=== PATIENT | female | born 2005 | race Caucasian/White ===

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

== ENCOUNTER 2024-02-21 17:18 | Emergency (ER) | payer OTHER, MEDICAID ==
[~2024-02-21 17:18] MED LIST changes: -NAPR-56 PO; +ONDA-243 PO; -ONDA4TAB12 PO
== END 2024-02-21 18:01 | disposition left against medical advice (07) ==
LOC: ER 17:19
DX: H57.10 Ocular pain, unspecified eye (principal); Z53.21 Procedure and treatment not carried out due to patient leaving prior to being seen by health care provider

== ENCOUNTER 2024-03-03 15:24 | Emergency (ER) | payer OTHER, MEDICAID ==
[~2024-03-03] VITALS: Ht 177.8 cm; Wt 116.8 kg
[2024-03-03] MEDS: normal saline 1000ml 1,000 ML IV ONE (15:48)
[2024-03-03] MEDS: diphenhydrAMINE 50 mg/ml inj IV ONE (15:49)
[2024-03-03] MEDS: metoclopramide 5 mg/ml inj IV ONE (15:49)
[2024-03-03] MEDS: dicyclomine 10 MG capsule PO ONE (15:49)
[2024-03-03 17:08] LABS: BILIRUBIN,URINE NEGATIVE (Neg); CLARITY,URINE CLEAR (Clear); COLOR,URINE STRAW (Yellow); GLUCOSE, URINE NEGATIVE (Neg); KETONES,URINE NEGATIVE (Neg); LEUKOCYTE ESTERASE ,URINE NEGATIVE (Neg); NITRITES, URINE NEGATIVE (Neg); OCCULT BLOOD,URINE NEGATIVE (Neg); PH,URINE 6.5 (4.8-8.0); PROTEIN,URINE NEGATIVE (Neg); UA COLLECTION TYPE CLN CATCH MIDSTREAM; UROBILINOGEN,URINE 0.2 E.U/dL (0.2-1.0)
[2024-03-03 17:09] LABS: URINE HCG NEGATIVE (NEG)
[2024-03-03 17:14] LABS: BASOPHILS # (AUTO) 0.1 X10'3 (0-0.2); HEMATOCRIT 39.7 % (35.0-45.0); HEMOGLOBIN 13.2 g/dl (12.0-16.0); LYMPHOCYTES # (AUTO) 1.9 X10'3 (1.1-4.8); MEAN PLATELET VOLUME 11.2 FL (7.4-10.4); MONOCYTES # (AUTO) 0.6 X10'3 (0-0.9); RED CELL DISTRIBUTION WIDTH 13.7 % (11.5-14.5); WHITE BLOOD COUNT 6.8 X10'3 (4.5-11.0)
[2024-03-03 17:15] LABS: URINE AMPHETAMINE SCREEN NEGATIVE (Neg); URINE BARBITUATE SCREEN NEGATIVE (Neg); URINE BENZODIAZEPINES SCREEN NEGATIVE (Neg); URINE CANNABINOID SCREEN NEGATIVE (Neg); URINE COCAINE SCREEN NEGATIVE (Neg); URINE METHADONE SCREEN NEGATIVE (Neg); URINE OPIATE SCREEN NEGATIVE (Neg); URINE PHENCYCLIDINE SCREEN NEGATIVE (Neg)
[2024-03-03 17:16] LABS: BASOPHILS % (AUTO) 1.5 % (0-1); EOSINOPHILS % (AUTO) 0.7 % (0-6); HCG SERUM QL NEGATIVE; LYMPHOCYTES % (AUTO) 28.3 % (21-51); MEAN CORPUSCULAR HEMOGLOBIN 30.1 PG (27.0-31.0); MEAN CORPUSCULAR HGB CONC 33.2 g/dL (33.0-36.5); MEAN CORPUSCULAR VOLUME 90.6 FL (78-98); MONOCYTES % (AUTO) 8.6 % (2-12); NEUTROPHILS # (AUTO) 4.1 X10'3 (1.8-7.7); NEUTROPHILS % (AUTO) 60.9 % (42-75); PLATELET COUNT 318 X10'3 (140-440); RED BLOOD COUNT 4.38 X10'6 (4.20-5.60)
[2024-03-03 17:23] LABS: ALANINE AMINOTRANSFERASE 29 U/L (12-78); ALBUMIN/GLOBULIN RATIO 1.1 (1.1-1.5); ALKALINE PHOSPHATASE 88 IU/L (20-180); ANION GAP 11 (8-16); ASPARTATE AMINO TRANSFERASE 19 U/L (10-37); BILIRUBIN,TOTAL 0.7 MG/DL (0.1-1.0); BLOOD UREA NITROGEN 7 MG/DL (7-18); BUN/CREATININE RATIO 8.9 (10.0-20.0); CALCIUM 9.1 MG/DL (8.5-10.1); CHLORIDE 106 MMOL/L (99-107); CREATININE 0.79 MG/DL (0.40-0.90); GLUCOSE 89 MG/DL (70-104); LIPASE 23 U/L (16-77); POTASSIUM 3.6 MMOL/L (3.5-5.1); SODIUM 143 MMOL/L (135-145); TOTAL CARBON DIOXIDE 25.9 MMOL/L (24-32); TOTAL PROTEIN 7.7 G/DL (6.4-8.2); eCRCL 124 ML/MIN; eGFR > 90 ML/MIN
[2024-03-03] MEDS ORDERED: ONDA-243 PO (18:33)
[2024-03-03] MEDS ORDERED: DICY10CA88 PO (18:33)
[2024-03-03 18:47] VITALS: BP 147/73; PULSE 95; RESP 18; TEMP 98.3; O2SAT 99
== END 2024-03-03 18:40 | disposition home or self-care (01) ==
LOC: ER 15:24
DX: K29.00 Acute gastritis without bleeding (principal); R11.2 Nausea with vomiting, unspecified; Z88.1 Allergy status to other antibiotic agents; Z79.899 Other long term (current) drug therapy; F41.9 Anxiety disorder, unspecified; F32.A Depression, unspecified
CPT/HCPCS: 36415; 74176; 76700; 80053; 80305; 81003; 81025; 83690; 84703; 85025; 96361; 96374; 96375; 99285; J1200; J2765; J7030

== ENCOUNTER 2024-03-09 08:06 | Emergency (ER) | payer OTHER, MEDICAID ==
[~2024-03-09] VITALS: Ht 180.3 cm; Wt 109.1 kg
[~2024-03-09 08:06] MED LIST changes: +DICY10CA88 PO
[2024-03-09 08:08] VITALS: BP 145/86; PULSE 124; RESP 18; TEMP 100; O2SAT 98
== END 2024-03-09 08:55 | disposition left against medical advice (07) ==
LOC: ER 08:07
DX: J11.1 Influenza due to unidentified influenza virus with other respiratory manifestations (principal); Z88.1 Allergy status to other antibiotic agents; Z53.21 Procedure and treatment not carried out due to patient leaving prior to being seen by health care provider

== ENCOUNTER → 2024-12-11 | Emergency (ER) | payer MEDICAID, OTHER ==
[~2024-12-11] VITALS: Ht 180.3 cm; Wt 127.3 kg
[~2024-12-11] MED LIST changes: +ARIP5TAB49 PO; -DICY10CA88 PO; +HYDR-3686 PO
[2024-12-11 14:58] VITALS: BP 149/86; PULSE 99; TEMP 98.1; O2SAT 98
[2024-12-11 15:35] VITALS: RESP 18
[2024-12-11 15:45] LABS: BASOPHILS # (AUTO) 0.1 X10'3 (0-0.2); EOSINOPHILS # (AUTO) 0.1 X10'3 (0-0.9); HEMOGLOBIN 13.9 g/dl (12.0-16.0); MONOCYTES # (AUTO) 0.6 X10'3 (0-0.9); RED CELL DISTRIBUTION WIDTH 14.6 % (11.5-14.5); WHITE BLOOD COUNT 7.3 X10'3 (4.5-11.0)
[2024-12-11 15:46] LABS: BASOPHILS % (AUTO) 1.4 % (0-1); EOSINOPHILS % (AUTO) 1.4 % (0-6); HEMATOCRIT 42.5 % (35.0-45.0); LYMPHOCYTES # (AUTO) 2.4 X10'3 (1.1-4.8); MEAN CORPUSCULAR HEMOGLOBIN 29.4 PG (27.0-31.0); MEAN CORPUSCULAR HGB CONC 32.8 g/dL (33.0-36.5); MEAN CORPUSCULAR VOLUME 89.5 FL (78-98); MEAN PLATELET VOLUME 11.9 FL (7.4-10.4); MONOCYTES % (AUTO) 7.8 % (2-12); NEUTROPHILS # (AUTO) 4.1 X10'3 (1.8-7.7); NEUTROPHILS % (AUTO) 56.4 % (42-75); PLATELET COUNT 338 X10'3 (140-440); RED BLOOD COUNT 4.75 X10'6 (4.20-5.60)
[2024-12-11 15:53] LABS: BILIRUBIN,URINE SMALL (Neg); CLARITY,URINE SLIGHTLY CLOUDY (Clear); COLOR,URINE YELLOW (Yellow); GLUCOSE, URINE NEGATIVE (Neg); KETONES,URINE TRACE mg/dl (Neg); LEUKOCYTE ESTERASE ,URINE NEGATIVE (Neg); NITRITES, URINE NEGATIVE (Neg); OCCULT BLOOD,URINE NEGATIVE (Neg); PROTEIN,URINE TRACE mg/dl (Neg); URINE HCG NEGATIVE (NEG); UROBILINOGEN,URINE 0.2 E.U/dL (0.2-1.0)
[2024-12-11 15:59] LABS: UA COLLECTION TYPE CLN CATCH MIDSTREAM
[2024-12-11 15:59] LABS: ALANINE AMINOTRANSFERASE 44 U/L (12-78); ALBUMIN 4.2 G/DL (3.4-5.0); ALBUMIN/GLOBULIN RATIO 1.1 (1.1-1.5); ALKALINE PHOSPHATASE 102 IU/L (20-180); ANION GAP 8 (8-16); ASPARTATE AMINO TRANSFERASE 23 U/L (10-37); BILIRUBIN,TOTAL 0.6 MG/DL (0.1-1.0); BLOOD UREA NITROGEN 7 MG/DL (7-18); CALCIUM 9.1 MG/DL (8.5-10.1); CHLORIDE 106 MMOL/L (99-107); CREATININE 0.88 MG/DL (0.40-0.90); GLUCOSE 91 MG/DL (70-104); LIPASE 19 U/L (16-77); POTASSIUM 4.1 MMOL/L (3.5-5.1); SODIUM 144 MMOL/L (135-145); TOTAL CARBON DIOXIDE 29.7 MMOL/L (24-32); TOTAL PROTEIN 7.9 G/DL (6.4-8.2); eCRCL 114 ML/MIN; eGFR 82 ML/MIN
[2024-12-11 16:00] LABS: BACTERIA,URINE 2+ /HPF (Neg); MUCUS STRANDS FEW /LPF (Neg); RBC,URINE 0-2 /HPF (0-2); RENAL CELLS, URINE FEW /HPF; SQUAMOUS EPITHELIAL CELL,UR MANY /LPF (FEW); TRANSITIONAL EPI CELLS,URINE MODERATE /HPF; WBC,URINE 0-4 /HPF (0-4)
[2024-12-11 16:06] LABS: LARGE PLATELETS FEW; PLATELET ESTIMATE NORMAL
--- NOTE | 2024-12-11 16:14 | Physician Documentation ---
History of Present Illness General Chief Complaint: Abdominal Pain w/vomiting Stated Complaint: ABDOMINAL PAIN Time Seen by MD: 15:48 Primary Medical Doctor: [facility] History of Present Illness Initial Comments The patient is a 19-year-old female with several months of abdominal pain. She was evaluated at one point I OBGYN who are going to who two additional tests for PCOS but he lost her insurance and these tests were not done. Her last menstrual period was four months ago. He is overweight. She had pain, nausea and vomiting last night and today. She has had periods of diarrhea in the past, as well. She has a history of borderline personality, as well. Medication Reconciliation Allergies: Coded Allergies: amoxicillin (Verified Allergy, Mild, Hives, 03/09/24) Scheduled Aripiprazole (Abilify), 1 TAB PO DAILY, (Reported) Hydroxyzine Hcl* (Atarax*), 2 TAB PO HS, (Reported) Isotretinoin (Accutane), 70 MG PO BID, (Reported) Zach/Polymyx B Sulf/Dexameth (Gzgdoh-Dknzg-Pklqcuu Eye Ointm), 1 APPLIC EACHEYE HS, (Reported) Nitrofurantoin Monohyd/M-Cryst (Macrobid 100 mg Capsule), 1 CAP PO Q12H ONDANSETRON ODT 4mg tablet (Ondansetron Odt), 1 TABLET PO Q6H ONDANSETRON ODT 4mg tablet (Ondansetron Odt), 1 TABLET PO Q6H Tacrolimus (Tacrolimus), 1 APPLIC TP BID, (Reported) Scheduled PRN ONDANSETRON ODT 4mg tablet (Ondansetron Odt), 1 TAB PO Q6H PRN PRN for nausea/vomiting Discontinued Medications Escitalopram Oxalate (Lexapro), 1 TAB PO DAILY, (Reported) Discontinued Reason: patient no longer taking Past Medical History Past Medical History: UTI, Anxiety, Bipolar, Depression Past Surgical History: no surgical history Last Menstrual Period: Sep 06, 2024 Alcohol Use: None Drug Use: none Lives In: Home Review of Systems ROS Constitutional: Denies chills, fatigue, fever, weight gain or weight loss. HEENT: Denies hearing loss, sinus pressure or visual changes. Respiratory: Denies cough, shortness of breath or wheezing. Cardiovascular: Denies chest pain, pain while walking (claudication), edema or palpitations. Gastrointestinal: Chronic abdominal pain and nausea Genitourinary: Denies painful urination (dysuria), excessive amount of urine (polyuria) or urinary frequency. Metabolic/Endocrine: Denies cold intolerance, heat intolerance, excessive thirst (polydipsia) or excessive hunger (polyphagia). Neurological: Denies dizziness, extremity numbness, extremity weakness, headaches, seizures or tremors. Psychiatric: Denies anxiety or depression. Integumentary: Denies breast discharge, breast lump, hives, mole change(s), rash or skin lesion. Musculoskeletal: Denies back pain, joint pain, joint swelling or neck pain. Hematologic: Denies easily bleeding, easily bruises, lymphedema or issues with blood clots. Immunologic: Denies food allergies or seasonal allergies. Physical Exam Physical Exam Vital Signs: Temperature: 98.1, Heart Rate: 99, Respiratory Rate: 18, BP: 149/86, Pulse Oximetry: 98, Weight: 127.270 Oxygen Flow Rate: 0 Physical Exam Physical Exam Vitals and nursing note reviewed. Constitutional: General: Patient is awake, alert, oriented x 4 in no acute distress and well appearing. Speech is clear and lucid. Appearance: Normal appearance. Patient is not ill-appearing, toxic-appearing or diaphoretic. HENT: Head: Normocephalic and atraumatic. Mouth/Throat: Mouth: Mucous membranes are moist. Pharynx: Oropharynx is clear. Eyes: General: No scleral icterus. Extraocular Movements: Extraocular movements intact. Pupils: Pupils are equal, round, and reactive to light. Cardiovascular: Rate and Rhythm: Normal rate and regular rhythm. Heart sounds: No murmur heard. Pulmonary: Effort: No respiratory distress. Breath sounds: No wheezing, rhonchi or rales. Abdominal: General: There is no distension. Palpations: There is no fluid wave, hepatomegaly or mass. Tenderness: There is no abdominal tenderness. There is no guarding. Musculoskeletal: General: No swelling or deformity. Skin: Coloration: Skin is not jaundiced. Findings: No erythema or rash. Neurological: Mental Status: Patient is alert. Progress Results/Orders Results/Orders Completed Orders - SABRA MARTE MD Hcg, Ur Ql (12/11/24 15:18) Cbc/Diff (12/11/24 15:18) BMP (12/11/24 15:18) Lipase (12/11/24 15:18) CMP (12/11/24 15:18) Ua W/Microscopic, Cult If Ind (12/11/24 15:32) Vital Signs 12/11/24 12/11/24 14:58 15:35 Temp 98.1 Pulse 99 Resp 15 18 B/P (MAP) 149/86 Pulse Ox 98 O2 Flow Rate 0 Laboratory Tests Test 12/11/24 15:32 12/11/24 15:33 Urine Specimen Description Cln catch midstream Urine Color Yellow Urine Clarity Slightly cloudy Urine pH 6.0 Urine Specific Mumford 1.025 Urine Protein Trace Urine Glucose (UA) Negative Urine Ketones Trace H Urine Occult Blood Negative Urine Nitrite Negative Urine Bilirubin Small Urine Urobilinogen 0.2 Urine Leukocyte Esterase Negative Urine RBC 0-2 Urine WBC 0-4 Urine Squamous Epithelial Cells Many Urine Transitional Epithelial Cells Moderate Urine Renal Cells Few Urine Bacteria 2+ Urine Mucus Few Urine Culture Indicated Not ind Volume Urine Centrifuged 10 ml Urine HCG, Qualitative Negative Urine Comment White Blood Count 7.3 Red Blood Count 4.75 Hemoglobin 13.9 Hematocrit 42.5 Mean Corpuscular Volume 89.5 Mean Corpuscular Hemoglobin 29.4 Mean Corpuscular Hemoglobin Concent 32.8 L Red Cell Distribution Width 14.6 H Platelet Count 338 Mean Platelet Volume 11.9 H Neutrophils (%) (Auto) 56.4 Lymphocytes (%) (Auto) 33.0 Monocytes (%) (Auto) 7.8 Eosinophils (%) (Auto) 1.4 Basophils (%) (Auto) 1.4 H Neutrophils # (Auto) 4.1 Lymphocytes # (Auto) 2.4 Monocytes # (Auto) 0.6 Eosinophils # (Auto) 0.1 Basophils # (Auto) 0.1 CBC Comment Platelet Estimate Normal Large Platelets Few Red Blood Cell Morphology Normal Basophilic Stippling Sodium Level 144 Potassium Level 4.1 Chloride Level 106 Carbon Dioxide Level 29.7 Anion Gap 8 Blood Urea Nitrogen 7 Creatinine 0.88 Estimated GFR/1.73 m2 82 BUN/Creatinine Ratio 8.0 L Glucose Level 91 Calcium Level 9.1 Total Bilirubin 0.6 Aspartate Amino Transf (AST/SGOT) 23 Alanine Aminotransferase (ALT/SGPT) 44 Alkaline Phosphatase 102 Total Protein 7.9 Albumin 4.2 Globulin 3.7 Albumin/Globulin Ratio 1.1 Lipase 19 Chemistry Comments Medical Decision Making Findings This 19-year-old female has chronic abdominal pain. This has been going on for quite a few months, she reports. She was going to get tested for PCOS but lost her insurance. She reports that she now has a her insurance and I am going to encourage her to follow up with the prior clinic that evaluated her. In the meantime I am advising her to use ibuprofen and I will prescribe Zofran for nausea. Patient declined the Zofran. Departure Disposition: HOME / SELF CARE / HOMELESS Impression: Primary Impression: Chronic abdominal pain Condition: Stable Additional Instructions: Please follow-up with your OBGYN. Referrals: NO PRIMARY CARE PROVIDER (PCP) Signature Scribe Signature: . Attestation: . SBARA MARTE MD Dec 11, 2024 16:14
== END | disposition home or self-care (01) ==
LOC: ER 14:55
DX: G89.29 Other chronic pain (principal); R10.9 Unspecified abdominal pain; F31.9 Bipolar disorder, unspecified; Z88.1 Allergy status to other antibiotic agents; Z79.899 Other long term (current) drug therapy
CPT/HCPCS: 36415; 80053; 81001; 81025; 83690; 85008; 85025; 99283

== ENCOUNTER 2025-03-15 05:13 | Emergency (ER) | payer BC ==
[~2025-03-15] VITALS: Ht 180.3 cm; Wt 113.6 kg
[~2025-03-15 05:13] MED LIST changes: -ESCI10TA PO
[2025-03-15 05:17] VITALS: BP 132/66; PULSE 116; RESP 20; O2SAT 96
--- NOTE | 2025-03-15 05:56 | Physician Documentation ---
History of Present Illness General Chief Complaint: Sore Throat Stated Complaint: SORE THROAT Time Seen by MD: 05:56 Primary Medical Doctor: [facility] History of Present Illness Initial Comments The patient is a 19-year-old female who states over last three days she has had sore throat some congestion and pain when she swallows, the patient states her pain is moderate. Patient states he was seen at a clinic two days ago was tested for COVID and strep and that was negative. Patient states she has had some chills and subjective fevers denies a objective fever. Patient denies any cough patient denies any nausea vomiting or diarrhea. Medication Reconciliation Allergies: Coded Allergies: amoxicillin (Verified Allergy, Mild, Hives, 03/09/24) Scheduled Aripiprazole (Abilify), 1 TAB PO DAILY, (Reported) Cephalexin*Monohydrate* (Keflex*), 2 CAP PO BID Hydroxyzine Hcl* (Atarax*), 2 TAB PO HS, (Reported) Isotretinoin (Accutane), 70 MG PO BID, (Reported) Zach/Polymyx B Sulf/Dexameth (Xpfuzj-Fwzgu-Qxyijfp Eye Ointm), 1 APPLIC EACHEYE HS, (Reported) Nitrofurantoin Monohyd/M-Cryst (Macrobid 100 mg Capsule), 1 CAP PO Q12H ONDANSETRON ODT 4mg tablet (Ondansetron Odt), 1 TABLET PO Q6H ONDANSETRON ODT 4mg tablet (Ondansetron Odt), 1 TABLET PO Q6H Tacrolimus (Tacrolimus), 1 APPLIC TP BID, (Reported) Scheduled PRN ONDANSETRON ODT 4mg tablet (Ondansetron Odt), 1 TAB PO Q6H PRN PRN for nausea/vomiting Past Medical History Past Medical History: UTI, Anxiety, Bipolar, Depression Past Surgical History: no surgical history Alcohol Use: None Drug Use: none Lives In: Home Review of Systems All Other Systems at this time: Reviewed and Negative Physical Exam Physical Exam Vital Signs: Temperature: 98.3, Source: Oral, Heart Rate: 116, Respiratory Rate: 20, BP: 132/66, Pulse Oximetry: 96, Weight: 113.600 Oxygen Flow Rate: 0 Physical Exam VITALS: Reviewed and as above. GENERAL: Alert, no apparent distress. HEENT: Normocephalic, atraumatic, PERRL, EOMI, dry mucosa, patient has erythematous tonsils bilaterally with exudates RESPIRATORY: Lungs clear, normal breath sounds, no respiratory distress. CHEST: No accessory muscle use, no retractions CV: Tachycardic rate rate, rhythm, no edema, no murmur, No: JVD MUSCULOSKELETAL: No deformities, no edema SKIN: Warm and dry, no rash NEURO: Oriented x4, No motor or sensory deficit PSYCH: Normal mood and affect, no agitation Progress Results/Orders Results/Orders Completed Orders - OSMANY MAR MD Cephalexin Capsule (Keflex Capsule) (03/15/25 06:15) Ketorolac Trometh 15mg/Ml Vial (Toradol (03/15/25 06:15) Medications Received in ER Medications (Trade) Dose Ordered Sig/Denilson Route PRN Reason Start Time Stop Time Status Last Admin Dose Admin (Keflex capsule) 500 mg ONCE ONCE PO 03/15/25 06:15 03/15/25 06:16 DC 03/15/25 06:24 500 MG (Toradol injection) 15 mg ONCE ONCE IM 03/15/25 06:15 03/15/25 06:16 DC 03/15/25 06:25 15 MG Vital Signs 03/15/25 03/15/25 05:17 06:23 Temp 98.3 98.3 Pulse 116 Resp 20 B/P (MAP) 132/66 Pulse Ox 96 O2 Flow Rate 0 Medical Decision Making Findings The patient is nontoxic appearing she is slightly tachycardic with a slight oral dryness suggesting mild dehydration the patient does have exudative pharyngitis, given this finding the patient was will be treated for possible strep throat with Keflex. Patient was given a dose of Keflex here in the emergency department. Prior hospitalizations have been reviewed. The patient's pulse oximetry was interpreted as adequate normal the patient will be discharged Departure Disposition: 01 HOME / SELF CARE / HOMELESS Impression: Primary Impression: Acute pharyngitis Qualified Codes: J02.9 - Acute pharyngitis, unspecified Discharge Instructions: Sore Throat Referrals: NO PRIMARY CARE PROVIDER (PCP) Prescriptions Cephalexin*Monohydrate* (Keflex*) 500 Mg Capsule 2 CAP PO BID, #28 CAP Prov: OSMANY MAR MD 03/15/25 Signature Scribe Signature: no Attestation: The note accurately reflects work and decisions made by me.Osmany Mar MD 03/15/25 07:34 OSMANY MAR MD Mar 15, 2025 05:56
[2025-03-15] MEDS ORDERED: CEPH-585 PO (06:15)
[2025-03-15 06:23] VITALS: TEMP 98.3
[2025-03-15] MEDS: ketorolac trometh 15mg/ml vial 15 MG/ML ML IM ONE (06:25)
== END 2025-03-15 06:30 | disposition home or self-care (01) ==
LOC: ER 05:14
DX: J02.9 Acute pharyngitis, unspecified (principal); F41.9 Anxiety disorder, unspecified; F31.9 Bipolar disorder, unspecified; Z88.1 Allergy status to other antibiotic agents; Z87.440 Personal history of urinary (tract) infections; Z79.899 Other long term (current) drug therapy
CPT/HCPCS: 96372; 99283; J1885

== ENCOUNTER 2025-04-01 23:31 | Emergency (ER) | payer BC ==
[~2025-04-01] VITALS: Ht 180.3 cm; Wt 113.6 kg
[~2025-04-01 23:31] MED LIST changes: +CEPH-585 PO
[2025-04-02] MEDS ORDERED: AZIT-164 PO (01:56)
--- NOTE | 2025-04-02 01:59 | Physician Documentation ---
History of Present Illness ~ Chief Complaint: Sore Throat Stated Complaint: THROAT PAIN Time Seen by MD: 01:38 OK to notify your PCP?: Yes Primary Medical Doctor: [facility] Source: patient, RN/MD, RN notes reviewed, old records Mode of Arrival: POV Exam Limitations: no limitations HPI This patient was seen on March 15 for acute pharyngitis. She states she was given antibiotics and she improved but it never really resolved she continues to have throat pain muffled voice no fever no URI complaints hurts to swallow able to tolerate her secretions. Last visit her strep culture and COVID studies as well as viral studies were all negative. She now returns not feeling improved concerned that she is not getting better. She denies the ability to swallow fluids or any other concerns. She is now here for evaluation and care. No sick contacts. Medication Reconciliation Allergies: Coded Allergies: amoxicillin (Verified Allergy, Mild, Hives, 03/09/24) Scheduled Aripiprazole (Abilify), 1 TAB PO DAILY, (Reported) Azithromycin (Zithromax), 1 TAB PO DAILY Cephalexin*Monohydrate* (Keflex*), 2 CAP PO BID Hydroxyzine Hcl* (Atarax*), 2 TAB PO HS, (Reported) Isotretinoin (Accutane), 70 MG PO BID, (Reported) Zach/Polymyx B Sulf/Dexameth (Zbzmvt-Dphrj-Pmtpufk Eye Ointm), 1 APPLIC EACHEYE HS, (Reported) Nitrofurantoin Monohyd/M-Cryst (Macrobid 100 mg Capsule), 1 CAP PO Q12H ONDANSETRON ODT 4mg tablet (Ondansetron Odt), 1 TABLET PO Q6H ONDANSETRON ODT 4mg tablet (Ondansetron Odt), 1 TABLET PO Q6H Tacrolimus (Tacrolimus), 1 APPLIC TP BID, (Reported) Scheduled PRN ONDANSETRON ODT 4mg tablet (Ondansetron Odt), 1 TAB PO Q6H PRN PRN for nausea/vomiting Past Medical History Past Medical History: UTI, Anxiety, Bipolar, Depression Past Surgical History: appendectomy Smoking Status: Current every day smoker Alcohol Use: None Drug Use: marijuana Lives In: Home Review of Systems All Other Systems at this time: Reviewed and Negative Physical Exam Vital Signs: RN Vital Signs have been reviewed: Yes, Temperature: 98.5, Source: Oral, Heart Rate: 88, Respiratory Rate: 16, BP: 124/85, Pulse Oximetry: 98, Weight: 113.640 Oxygen Flow Rate: 0 Physical Exam General: The patient is well developed, well nourished, nontoxic appearing and is in no acute distress. Muffled voice Skin: Quincy, warm and dry with no rashes. HEENT: Head was normocephalic and atraumatic. Eyes - pupils equal, round, reactive to light and accommodation. Extraocular movements were intact. Conjunctivae were nonicteric. Ears - bilateral tympanic membranes were normal. No erythema redness normal ear exam. The mouth and oropharynx were clear with moist mucous membranes. There were no pharyngeal exudates but significant positive erythema. Enlarged tonsils without exudates Neck: Supple and nontender. There was no jugular venous distention, lymphadenopathy, thyromegaly or masses. Chest: Clear to auscultation bilaterally without wheezes, rales or rhonchi. Heart: Rate regular and rhythmic. S1, S2. No murmurs. Abdomen: Soft, nontender and nondistended. Positive bowel sounds. No guarding or rebound. Extremities: No cyanosis, clubbing or edema. The patient moves all extremities. Pulses were equal and symmetric. Neurologic: Motor sensory grossly intact Psychologic: The patient was oriented to person, place and time. The patient demonstrated appropriate judgement and insight. Progress Results/Orders Reviewed/noted all lab results: Yes Results/Orders Orders - HERSON RICO MD Strep A Rapid (04/02/25 01:35) Naproxen Tablet (Naprosyn Tablet) (04/02/25 02:15) Completed Orders - HERSON RICO MD Dexamethasone Tablet (Decadron Tablet) (04/02/25 01:55) Azithromycin Tablet (Zithromax Tablet) (04/02/25 01:55) Medications Received in ER Medications (Trade) Dose Ordered Sig/Denilson Route PRN Reason Start Time Stop Time Status Last Admin Dose Admin (Decadron tablet) 16 mg ONCE ONCE PO 04/02/25 01:55 04/02/25 01:56 DC 04/02/25 02:13 16 MG (Zithromax tablet) 500 mg ONCE ONCE PO 04/02/25 01:55 04/02/25 01:58 DC 04/02/25 02:12 500 MG Vital Signs 04/01/25 23:58 Temp 98.5 Pulse 88 Resp 16 B/P (MAP) 124/85 Pulse Ox 98 O2 Flow Rate 0 Laboratory Tests Test 04/02/25 01:43 Re-Evaluation Re-Evaluation : Re-Evaluation: Unchanged Progress Patient was seen and examined. Patient is given reassurance. Patient received antibiotics once again atypical antibiotics Zithromax was given this time also steroids because most likely it is viral in etiology. Strep culture has been collected and pending but the patient will be treated and discharged home for bacterial etiology. Patient was told to return if she develops difficulty swallowing muffled voice high fevers swelling in the neck like a peritonsillar abscess. Medical Decision Making Additional info obtained from: old records Throat Diff Dx: Considerations: Include: AIDS, Epiglottitis, Esophageal candidiasis, Hand foot mouth disease, Herpangina, Herpetic stomatitis, Herpes simplex, Infection mononucleosis, Immunodeficiency, Dilip's angina, Peritonsillar abscess, Peritonsillar cellulitis, Pharyngitis-diphtheria, Pharyngitis-strepococcal, Pharyngitis-viral, Thrush, URI, Other Departure Disposition: HOME / SELF CARE / HOMELESS Impression: Primary Impression: Acute pharyngitis Qualified Codes: J02.9 - Acute pharyngitis, unspecified Additional Impression: Otalgia of right ear Condition: Stable Discharge Instructions: Sore Throat, Strep Throat, Adult Referrals: NO PRIMARY CARE PROVIDER (PCP) Prescriptions Azithromycin (Zithromax) 250 Mg Tablet 1 TAB PO DAILY, #4 TAB Prov: HERSON RICO MD 04/02/25 Education Educated: Patient Educated regarding: diagnosis, need for follow up, other Signature Scribe Signature: No scribed Attestation: The note accurately reflects work and decisions made by me.Herson Rico MD 04/02/25 01:54 HERSON RICO MD Apr 02, 2025 01:59
[2025-04-02 02:14] LABS: STREP A SCREEN NEGATIVE (Neg)
[2025-04-02 02:29] VITALS: BP 120/80; PULSE 82; RESP 18; TEMP 98.6; O2SAT 99
== END 2025-04-02 02:31 | disposition home or self-care (01) ==
LOC: ER 23:32
DX: J02.9 Acute pharyngitis, unspecified (principal); H92.01 Otalgia, right ear; F41.9 Anxiety disorder, unspecified; F31.9 Bipolar disorder, unspecified; F12.90 Cannabis use, unspecified, uncomplicated; F17.200 Nicotine dependence, unspecified, uncomplicated; Z88.0 Allergy status to penicillin; Z90.49 Acquired absence of other specified parts of digestive tract
CPT/HCPCS: 87081; 87880; 99284

== ENCOUNTER 2025-04-03 23:04 | Emergency (ER) | payer BC ==
[~2025-04-03] VITALS: Ht 180.3 cm; Wt 113.0 kg
[~2025-04-03 23:04] MED LIST changes: +AZIT-164 PO
--- NOTE | 2025-04-04 00:59 | Physician Documentation ---
History of Present Illness ~ Chief Complaint: Sore Throat Stated Complaint: THROAT PAIN Time Seen by MD: 00:56 Primary Medical Doctor: [facility] HPI Patient presents to the emergency room for evaluation of pharyngitis x3 weeks. She was tested for strep twice in his negative twice. She has put in two different antibiotics. She stated initially got better however that has become worse. No fevers. No shortness of breath Medication Reconciliation Allergies: Coded Allergies: amoxicillin (Verified Allergy, Mild, Hives, 03/09/24) Scheduled Aripiprazole (Abilify), 1 TAB PO DAILY, (Reported) Azithromycin (Zithromax), 1 TAB PO DAILY Cephalexin*Monohydrate* (Keflex*), 2 CAP PO BID Hydroxyzine Hcl* (Atarax*), 2 TAB PO HS, (Reported) Isotretinoin (Accutane), 70 MG PO BID, (Reported) Zach/Polymyx B Sulf/Dexameth (Kyidga-Ajymg-Mbdvhyp Eye Ointm), 1 APPLIC EACHEYE HS, (Reported) Nitrofurantoin Monohyd/M-Cryst (Macrobid 100 mg Capsule), 1 CAP PO Q12H ONDANSETRON ODT 4mg tablet (Ondansetron Odt), 1 TABLET PO Q6H ONDANSETRON ODT 4mg tablet (Ondansetron Odt), 1 TABLET PO Q6H Tacrolimus (Tacrolimus), 1 APPLIC TP BID, (Reported) Scheduled PRN ONDANSETRON ODT 4mg tablet (Ondansetron Odt), 1 TAB PO Q6H PRN PRN for nausea/vomiting Past Medical History Past Medical History: UTI, Anxiety, Bipolar, Depression Past Surgical History: appendectomy Alcohol Use: None Drug Use: marijuana Lives In: Home Review of Systems ROS All review of systems negative except as per HPI Physical Exam Vital Signs: Temperature: 98.4, Heart Rate: 87, Respiratory Rate: 16, BP: 159/100, Pulse Oximetry: 98, Weight: 113.000 Oxygen Flow Rate: 0 Physical Exam General: Patient is awake, alert, oriented x4 in no acute distress Head: Normocephalic and atraumatic. Eyes: Conjunctival normal. EOMI. PERRL. ENT: Mucous membranes moist. Peritonsillar abscess noted on right. Airway widely patent Neck: Supple, trachea is midline. Chest: Clear to auscultation bilaterally without rales, rhonchi, or wheezes. There is no accessory muscle use or retractions. Cardiac: RRR without murmurs, gallops, or rubs. Procedures Procedures Peritonsillar abscess aspiration: Status post informed verbal consent viscous lidocaine was utilized for topical anesthetic. Small amount of 1% lidocaine with epinephrine was injected in patient's right peritonsillar abscess to a total of 0.5 cc. 18 gauge needle with cap guard utilized to aspirate patient's peritonsillar abscess x3 with only blood aspirated. Patient tolerated procedure well without complication. Total time of procedure 10 minutes. Progress Results/Orders Results/Orders Completed Orders - PAULINO [place] MD Ondansetron Disint. Tablet (Zofran Odt T (04/04/25 01:05) Hydrocodone/Apap 5/325mg Tab ([place] 5/32 (04/04/25 01:05) Lidocaine 2% Viscous (Xylocaine 2% Visco (04/04/25 01:05) Medications Received in ER Medications (Trade) Dose Ordered Sig/Denilson Route PRN Reason Start Time Stop Time Status Last Admin Dose Admin (Zofran ODT tablet) 4 mg ONCE ONCE PO 04/04/25 01:05 04/04/25 01:06 DC 04/04/25 01:12 4 MG ([place] 5/325mg tablet) 1 tab ONCE ONCE PO 04/04/25 01:05 04/04/25 01:06 DC 04/04/25 01:12 1 TAB (Xylocaine 2% Viscous 15mL cup) 15 ml ONCE ONCE MM 04/04/25 01:05 04/04/25 01:06 DC 04/04/25 01:12 15 ML Vital Signs 04/03/25 23:14 Temp 98.4 Pulse 87 Resp 16 B/P (MAP) 159/100 Pulse Ox 98 O2 Flow Rate 0 Medical Decision Making Findings Patient presented to the emergency room for evaluation of sore throat. Differentials include but are not limited to viral syndrome, strep throat, peritonsillar abscess, retropharyngeal abscess. Physical exam consistent with peritonsillar abscess. Aspiration attempted. Study show patient's should improve although I did not obtain a status fine expression of purulence. ER precautions regarding worsening of symptoms or fevers or airway obstruction. Departure Disposition: HOME / SELF CARE / HOMELESS Impression: Primary Impression: Peritonsillar abscess Discharge Instructions: Peritonsillar Abscess, [id number] Referrals: NO PRIMARY CARE PROVIDER (PCP) Prescriptions Clindamycin HCL* (Clindamycin HCL*) 300 Mg Capsule 1 CAP PO Q8H for 10 Days, #30 CAP 0 Refills Prov: PAULINO NY MD 04/04/25 Signature Scribe Signature: No scribe Attestation: The note accurately reflects work and decisions made by me.Paulino Ny MD 04/04/25 01:49 PAULINO NY MD Apr 04, 2025 00:59
[2025-04-04] MEDS: LIDOcaine 2% Viscous 15ml cup MM ONE (01:12)
[2025-04-04] MEDS: ondansetron 4mg rapidly disintigrating tab PO ONE (01:12)
[2025-04-04] MEDS: HYDROcodone/acetaminophen 5mg/325mg tablet PO ONE (01:12)
[2025-04-04] MEDS ORDERED: CLIN-224 PO (01:49)
[2025-04-04] MEDS ORDERED: HYDR-3965 PO (03:06)
[2025-04-04 03:59] VITALS: BP 155/92; PULSE 82; RESP 18; TEMP 98.6; O2SAT 99
[2025-04-05] MEDS ORDERED: IBUP-1986 PO (13:54)
== END 2025-04-04 04:00 | disposition home or self-care (01) ==
LOC: ER 23:05
DX: J36 Peritonsillar abscess (principal); F41.9 Anxiety disorder, unspecified; F31.9 Bipolar disorder, unspecified; F12.90 Cannabis use, unspecified, uncomplicated; Z88.0 Allergy status to penicillin; Z90.49 Acquired absence of other specified parts of digestive tract
CPT/HCPCS: 42700; 99284

== ENCOUNTER 2025-04-05 08:25 | Emergency (ER) | payer BC ==
[~2025-04-05] VITALS: Ht 180.3 cm; Wt 110.0 kg
[~2025-04-05 08:25] MED LIST changes: +CLIN-224 PO; +HYDR-3965 PO
[2025-04-05 08:33] VITALS: BP 124/82; PULSE 86; TEMP 97.6; O2SAT 99
[2025-04-05 10:27] LABS: MEAN PLATELET VOLUME 12.7 FL (7.4-10.4); RED CELL DISTRIBUTION WIDTH 14.5 % (11.5-14.5)
[2025-04-05 10:34] LABS: CREATININE 0.73 MG/DL (0.40-0.90); TOTAL CARBON DIOXIDE 27.4 MMOL/L (24-32); eCRCL 137 ML/MIN; eGFR > 90 ML/MIN
[2025-04-05 10:52] LABS: LARGE PLATELETS MODERATE; PLATELET ESTIMATE NORMAL
[2025-04-05] MEDS: ondansetron 4mg rapidly disintigrating tab PO ONE (11:08)
[2025-04-05] MEDS: ketorolac trometh 15mg/ml vial 15 MG/ML ML IM ONE (11:09)
[2025-04-05 12:24] LABS: URINE HCG NEGATIVE (NEG)
[2025-04-05 12:51] VITALS: RESP 16
--- NOTE | 2025-04-05 13:03 | RADIOLOGY REPORT ---
EXAM: CT CT NECK SOFT TISSUES W/ IV CONTRAST INDICATION: Unilateral Throat Pain Exam Date: 04/05/2025 12:33 PM COMPARISON: None TECHNIQUE: CT of the neck with intravenous contrast. RADIATION DOSE: CTDIvol: 17.99 mGy, DLP: 480.94 mGy*cm CONTRAST: Type of contrast: Omnipaque 350 Contrast injected: 100 ml FINDINGS: Few prominent lymph nodes along both cervical chains measuring up to 1.7 cm in the right level 2 neck. The fat planes of the neck appear intact. The airway and larynx are unremarkable. Enlargement of the right palantine tonsil with developing right peritonsillar abscess measuring 1.0 x 0.7 cm although this appears quite phlegmonous with no strong rim enhancement. The parotid, submandibular and thyroid glands are unremarkable. The vascular structures of the neck appear patent. The visualized lung apices are clear. The limited visualized portions of the brain are unremarkable. The osseous structures are unremarkable. IMPRESSION: Evolving right peritonsillar abscess although this appears quite phlegmonous and not drainable.
--- NOTE | 2025-04-05 13:53 | Physician Documentation ---
History of Present Illness ~ Chief Complaint: Abscess Stated Complaint: RECHECK THROAT ABSCESS Time Seen by MD: 09:50 Primary Medical Doctor: [facility] HPI This is a 19-year-old female who presents back to the emergency department for continued right-sided throat pain, patient seen two days prior and diagnosed with a peritonsillar abscess that was not drainable. Patient reports no fever difficulty breathing though painful to swallow. Medication Reconciliation Allergies: Coded Allergies: amoxicillin (Verified Allergy, Mild, Hives, 04/05/25) Scheduled Aripiprazole (Abilify), 1 TAB PO DAILY, (Reported) Azithromycin (Zithromax), 1 TAB PO DAILY Cephalexin*Monohydrate* (Keflex*), 2 CAP PO BID Clindamycin HCL* (Clindamycin HCL*), 1 CAP PO Q8H Hydroxyzine Hcl* (Atarax*), 2 TAB PO HS, (Reported) Ibuprofen (Ibuprofen), 1 TAB PO Q8H Isotretinoin (Accutane), 70 MG PO BID, (Reported) Zach/Polymyx B Sulf/Dexameth (Faifbq-Sbrtu-Pdmqkqq Eye Ointm), 1 APPLIC EACHEYE HS, (Reported) Nitrofurantoin Monohyd/M-Cryst (Macrobid 100 mg Capsule), 1 CAP PO Q12H ONDANSETRON ODT 4mg tablet (Ondansetron Odt), 1 TABLET PO Q6H ONDANSETRON ODT 4mg tablet (Ondansetron Odt), 1 TABLET PO Q6H Tacrolimus (Tacrolimus), 1 APPLIC TP BID, (Reported) Scheduled PRN Hydrocodone Bit/Acetaminophen 5/325 MG ([place] 5/325 MG), 1 TAB PO Q4-6 hours PRN for pain ONDANSETRON ODT 4mg tablet (Ondansetron Odt), 1 TAB PO Q6H PRN PRN for nausea/vomiting Past Medical History Past Medical History: UTI, Anxiety, Bipolar, Depression Past Surgical History: appendectomy Alcohol Use: None Drug Use: marijuana Lives In: Home Review of Systems ROS As stated above in the HPI, otherwise all systems are reviewed and negative. Physical Exam Vital Signs: Temperature: 97.6, Source: Temporal, Heart Rate: 86, Respiratory Rate: 16, BP: 124/82, Pulse Oximetry: 99, Weight: 110.000 Oxygen Flow Rate: 0 Physical Exam VITALS: Reviewed and as above. GENERAL: Alert, nontoxic appearing, no apparent distress. HEENT: Right tonsil slightly larger than left, right tonsil erythematous left tonsil nonerythematous, no patches or exudates, no drooling, no muffled voice. No facial swelling, no submandibular swelling, no tongue elevation RESPIRATORY: No increased work of breathing, no respiratory distress, speaking in full clear sentences, clear lung sounds in all maciel, no stridor CV: Regular rate and rhythm no murmur Progress Results/Orders Results/Orders Orders - ИРИНА RUIZ Ct Neck Soft Tissues (04/05/25 12:45) Completed Orders - ИРИНА RUIZ Hcg, Ur Ql (04/05/25 09:42) Cbc/Diff (04/05/25 09:42) BMP (04/05/25 09:42) Ondansetron Disint. Tablet (Zofran Odt T (04/05/25 09:45) Ketorolac Trometh 15mg/Ml Vial (Toradol (04/05/25 11:00) Ct Neck Soft Tissues (04/05/25 12:45) Iohexol 350mg/Ml 100ml (Omnipaque 350mg/ (04/05/25 12:32) Vital Signs 04/05/25 04/05/25 04/05/25 08:33 11:09 12:51 Temp 97.6 Pulse 86 Resp 16 16 16 B/P (MAP) 124/82 Pulse Ox 99 O2 Flow Rate 0 Laboratory Tests Test 04/05/25 10:07 04/05/25 11:32 White Blood Count 9.3 Red Blood Count 4.40 Hemoglobin 13.4 Hematocrit 39.5 Mean Corpuscular Volume 89.9 Mean Corpuscular Hemoglobin 30.4 Mean Corpuscular Hemoglobin Concent 33.8 Red Cell Distribution Width 14.5 Platelet Count 248 Mean Platelet Volume 12.7 H Neutrophils (%) (Auto) 75.6 H Lymphocytes (%) (Auto) 15.8 L Monocytes (%) (Auto) 7.4 Eosinophils (%) (Auto) 0.4 Basophils (%) (Auto) 0.8 Neutrophils # (Auto) 7.0 Lymphocytes # (Auto) 1.5 Monocytes # (Auto) 0.7 Eosinophils # (Auto) 0.0 Basophils # (Auto) 0.1 CBC Comment Platelet Estimate Normal Large Platelets Moderate Red Blood Cell Morphology Normal Basophilic Stippling Sodium Level 140 Potassium Level 4.1 Chloride Level 105 Carbon Dioxide Level 27.4 Anion Gap 8 Blood Urea Nitrogen 10 Creatinine 0.73 Estimated GFR/1.73 m2 > 90 BUN/Creatinine Ratio 13.7 Glucose Level 87 Calcium Level 9.0 Albumin 3.9 Chemistry Comments Urine HCG, Qualitative Negative EKG/XRAY/CT/US/VASC/MRI CT : Impression Exam: CT NECK SOFT TISSUES EXAM: CT CT NECK SOFT TISSUES W/ IV CONTRAST INDICATION: Unilateral Throat Pain Exam Date: 04/05/2025 12:33 PM COMPARISON: None TECHNIQUE: CT of the neck with intravenous contrast. RADIATION DOSE: CTDIvol: 17.99 mGy, DLP: 480.94 mGy*cm CONTRAST: Type of contrast: Omnipaque 350 Contrast injected: 100 ml FINDINGS: Few prominent lymph nodes along both cervical chains measuring up to 1.7 cm in the right level 2 neck. The fat planes of the neck appear intact. The airway and larynx are unremarkable. Enlargement of the right palantine tonsil with developing right peritonsillar abscess measuring 1.0 x 0.7 cm although this appears quite phlegmonous with no strong rim enhancement. The parotid, submandibular and thyroid glands are unremarkable. The vascular structures of the neck appear patent. The visualized lung apices are clear. The limited visualized portions of the brain are unremarkable. The osseous structures are unremarkable. IMPRESSION: Evolving right peritonsillar abscess although this appears quite phlegmonous and not drainable. Electronically Signed by:MIKEY SIMON MD Date & Time: 04/05/25 1301 Dictated by: MIKEY SIMON MD Dictation date and time: 04/05/25 1301 I have reviewed and agree with the radiology report. I have reviewed and interpreted the imaging as: No Radiologic evidence of airway obstruction Medical Decision Making Findings This 19-year-old female presented back to the emergency department due to continued throat pain after being seen and diagnosed with peritonsillar abscess. Review of records indicate patient was seen for peritonsillar abscess and a drainage was attempted however drainage was unsuccessful, due to continued symptoms imaging indicated and CT ordered. CT did not demonstrate evidence of deep tissue involvement and confirmed a small peritonsillar abscess that was not amenable to draining. Lab work did not demonstrate significant evidence of systemic infection or metabolic derangement. Physical exam was reassuring with no hot potato voice/muffled voice, no drooling, and no significant swelling of the peritonsillar area or evidence of airway obstruction. Patient was medicated for pain with NSAID and reported improvement in symptoms. Patient was able to eat and tolerate fluids without significant pain. As patient is otherwise well- appearing and seems to be improving in the emergency department after NSAID administration patient is appropriate for outpatient follow up with ENT, additionally it is reassuring patient is already on a course of oral antibiotics from previous visit. Patient provided home care instructions, follow up instructions, and return to care precautions which she verbalized understanding of. Throat Diff Dx: Considerations: Include: AIDS, Epiglottitis, Esophageal candidiasis, Herpangina, Herpetic stomatitis, Herpes simplex, Immunodeficiency, Dilip's angina, Peritonsillar abscess, Peritonsillar cellulitis, Pharyngitis- strepococcal, Thrush, URI, Other (Airway obstruction, sepsis) Departure Time of Disposition: 13:53 Disposition: 01 HOME / SELF CARE / HOMELESS Impression: Primary Impression: Peritonsillar abscess Condition: Improved Discharge Instructions: Peritonsillar Abscess, [id number] Additional Instructions: Your CAT scan confirmed a peritonsillar abscess appears to be on drainable. It is reassuring you begun showing improvement after the Toradol, please use the prescribed high-dose ibuprofen as needed for pain as prescribed. If you have continued breakthrough pain please use the [place] as we discussed. I recommend you follow up with the ENT specialist and primary care for follow up. Please follow up with your primary care provider in the next few days. Please return to the emergency department for any new or worsening concerning symptoms. Do not use the ibuprofen for another 10 hours as you received an injection of Toradol which replaces this medicine. Take ibuprofen with food to avoid stomach upset. Referrals: NO PRIMARY CARE PROVIDER (PCP) Prescriptions Ibuprofen (Ibuprofen) 800 Mg Tablet 1 TAB PO Q8H for pain for 10 Days, #30 TAB 0 Refills Prov: ИРИНА RUIZ 04/05/25 Education Educated: Patient Educated regarding: diagnosis, treatment, prognosis, need for follow up Signature Scribe Signature: No scribe Attestation: The note accurately reflects work and decisions made by me.MIKE Linton 04/05/25 22:12 ИРИНА RUIZ Apr 05, 2025 13:53
[2025-04-05] MEDS ORDERED: IBUP-1986 PO (13:54)
== END 2025-04-05 14:13 | disposition home or self-care (01) ==
LOC: ER 08:25
DX: J36 Peritonsillar abscess (principal); F31.9 Bipolar disorder, unspecified; F41.9 Anxiety disorder, unspecified; F12.90 Cannabis use, unspecified, uncomplicated; Z88.1 Allergy status to other antibiotic agents; Z90.49 Acquired absence of other specified parts of digestive tract; Z79.899 Other long term (current) drug therapy
CPT/HCPCS: 36415; 70491; 80048; 81025; 85008; 85025; 96372; 99285; J1885; Q9967

== ENCOUNTER 2025-05-03 20:34 | Emergency (ER) | payer BC ==
[~2025-05-03 20:34] MED LIST changes: -AZIT-164 PO; +IBUP-1986 PO
[2025-05-04] MEDS ORDERED: HYDR-3965 PO (21:32)
== END 2025-05-03 21:40 | disposition left against medical advice (07) ==
LOC: ER 20:34
DX: R07.0 Pain in throat (principal); Z88.0 Allergy status to penicillin; Z53.21 Procedure and treatment not carried out due to patient leaving prior to being seen by health care provider

== ENCOUNTER 2025-05-04 18:37 | Emergency (ER) | payer BC, MEDICAID ==
[~2025-05-04] VITALS: Ht 180.3 cm; Wt 100.0 kg
[2025-05-04 18:38] VITALS: BP 134/89; PULSE 95; O2SAT 99
[2025-05-04 20:46] LABS: STREP A SCREEN NEGATIVE (Neg)
--- NOTE | 2025-05-04 20:53 | Physician Documentation ---
History of Present Illness ~ Chief Complaint: Sore Throat Stated Complaint: SORE THROAT Time Seen by MD: 19:07 Primary Medical Doctor: [facility] Medication Reconciliation Allergies: Coded Allergies: amoxicillin (Verified Allergy, Mild, Hives, 04/05/25) Scheduled Aripiprazole (Abilify), 1 TAB PO DAILY, (Reported) Cephalexin*Monohydrate* (Keflex*), 2 CAP PO BID Clindamycin HCL* (Clindamycin HCL*), 1 CAP PO Q8H Hydroxyzine Hcl* (Atarax*), 2 TAB PO HS, (Reported) Ibuprofen (Ibuprofen), 1 TAB PO Q8H Isotretinoin (Accutane), 70 MG PO BID, (Reported) Zach/Polymyx B Sulf/Dexameth (Umezav-Xenkw-Inogeyl Eye Ointm), 1 APPLIC EACHEYE HS, (Reported) Nitrofurantoin Monohyd/M-Cryst (Macrobid 100 mg Capsule), 1 CAP PO Q12H ONDANSETRON ODT 4mg tablet (Ondansetron Odt), 1 TABLET PO Q6H ONDANSETRON ODT 4mg tablet (Ondansetron Odt), 1 TABLET PO Q6H Tacrolimus (Tacrolimus), 1 APPLIC TP BID, (Reported) Scheduled PRN Hydrocodone Bit/Acetaminophen 5/325 MG ([place] 5/325 MG), 1 TAB PO Q4-6 hours PRN for pain ONDANSETRON ODT 4mg tablet (Ondansetron Odt), 1 TAB PO Q6H PRN PRN for nausea/vomiting Past Medical History Past Medical History: UTI, Anxiety, Bipolar, Depression Past Surgical History: appendectomy Alcohol Use: None Drug Use: marijuana Lives In: Home Review of Systems ROS As stated above in the HPI, otherwise all systems are reviewed and negative. Physical Exam Vital Signs: Temperature: 98.6, Heart Rate: 95, Respiratory Rate: 18, BP: 134/89, Pulse Oximetry: 99, Weight: 100.000 Physical Exam VITALS: Reviewed and as above. GENERAL: Alert, no apparent distress. HEENT: Normocephalic, atraumatic, PERRL, EOMI, dry mucosa, erythema noted to the posterior oropharynx. RESPIRATORY: Lungs clear, normal breath sounds, no respiratory distress. CHEST: No accessory muscle use, no retractions CV: Regular rate, rhythm, no edema, no murmur, No: JVD GI: Soft, non-tender, bowels sounds present, no rebound, guarding, or rigidity BACK: No CVA tenderness, or swelling MUSCULOSKELETAL No deformities, no edema SKIN: Warm and dry, no rash NEURO: Oriented x4, No motor or sensory deficit PSYCH: Normal mood and affect, no agitation Progress Results/Orders Results/Orders Orders - INGRID LEMONS Srinivasa [employer] DEAN Cult Throat + R/O Beta Strep (05/04/25 20:46) Completed Orders - CRISTO,INGRID Srinivasa [employer] DEAN Strep A Rapid (05/04/25 19:09) Acetaminophen 325mg Tablet (Tylenol Tabl (05/04/25 20:55) Ibuprofen Tablet (Motrin Tablet) (05/04/25 20:55) Vital Signs 05/04/25 18:38 Temp 98.6 Pulse 95 Resp 18 B/P (MAP) 134/89 Pulse Ox 99 Laboratory Tests Test 05/04/25 19:45 Group A Streptococcus Rapid Negative Medical Decision Making Additional information obtaine: other Findings Medical Decision-Making (MDM): 19-year-old female presents for sixth or seventh ED evaluation of persistent sore throat. History notable for prior CT imaging, throat swabs, multiple courses of antibiotics (for presumed streptococcal pharyngitis and abscess), and steroids. Initial diagnosis was streptococcal pharyngitis, later revised to possible abscess, then ruled out. She has an upcoming ENT appointment. Assessment: Recurrent pharyngitis/tonsillitis, not responsive to standard outpatient management. Pain refractory to acetaminophen and NSAIDs; ketorolac administered in ED. No evidence of airway compromise, abscess, or other acute complications on recent imaging and clinical exam. Evidence-Based Considerations: Most adult pharyngitis is viral; only 515% is due to group A Streptococcus (GAS). Antibiotics are indicated only for confirmed GAS, with penicillin or amoxicillin as first-line agents. Steroids are not routinely recommended for uncomplicated GAS pharyngitis due to limited benefit and potential adverse effects. Analgesia with acetaminophen, NSAIDs, and topical agents is first-line for symptom relief. Watchful waiting is recommended for recurrent tonsillitis unless criteria for tonsillectomy are met (?7 episodes/year, ?5/year for 2 years, or ?3/year for 3 years). Referral to ENT is appropriate for persistent, recurrent, or complicated cases. Plan: Continue supportive care with acetaminophen and NSAIDs as tolerated. No further antibiotics or steroids unless new evidence of bacterial infection or abscess emerges. Pain control escalated with single-dose ketorolac in ED; consider short-term opioid analgesia only if pain remains severe and nonresponsive, with careful monitoring and risk assessment. Patient advised to follow up with ENT as scheduled for further evaluation and consideration of surgical intervention if criteria are met. Return precautions discussed: worsening pain, fever, neck swelling, difficulty swallowing, or respiratory distress. Disposition: Stable for discharge. Follow-up with ENT on of this month. No new prescriptions at this time; continue current analgesics. Patient educated on expected course and red flag symptoms. References: ACP/CDC guidelines for pharyngitis management. IDSA guidelines for streptococcal pharyngitis. [employer] reviews on tonsillitis and pharyngitis. Ear Diff. Dx: Considerations: Include: Abrasion, Cerumen impaction, Foreign body, Otitis externa, Barotrauma, Otitis media, Perforation, Referred pain- dental, Referred pain-pharyngitis, Referred pain-sinusitis, Referred pain-TMJ syn., Tympanic Membrane Injury, Other Eye Diff. Dx: Considerations: Include: Chalazoin, Conjuctivits-allergic, Conjuctivitis-bacterial, Conjuctivits-chlamydial, Conjuctivitis-viral, Corneal abrasion, Corneal laceration, Corneal ulceration, Foreign body-conjuctiva, Foreign body-corneal, Foreign body-intraocular, Foreign body-lid, Glaucoma, Globe rupture, Hordeolum, Iritis, Orbital cellulitis, Periobital cellulitis, Retinal artery occulsion, Retinal vein occlusion, Rust ring, Subconjunctival hem, Ultraviolet keratitis, Uveitis, Vitreous hemorrhage, Other Nose Diff. Dx: Considerations: Include: Abrasion, Anterior nasal bleed, Avulsion, Contusion, Coagulopathy, Fracture-nasal bone, Fracture-septum, Hypert ension, Laceration, Other, Posterior nasal bleed, Retained foreign body, Septal hematoma Tooth Diff. Dx: Considerations: Include: Alveolar fracture, Aveolar osteitis, ANUG, Facial cellulitis, Periapical abscess, Periodontal abscess, Post- extraction bleeding, Pulpitis, Trigeminal neuralgia, Tooth-avulsion, Tooth- eruption, Tooth-fracture, Tooth-subluxation, Other Throat Diff Dx: Considerations: Include: AIDS, Epiglottitis, Esophageal candidiasis, Hand foot mouth disease, Herpangina, Herpetic stomatitis, Herpes simplex, Infection mononucleosis, Immunodeficiency, Dilip's angina, Peritonsillar abscess, Peritonsillar cellulitis, Pharyngitis-diphtheria, Pharyngitis-strepococcal, Pharyngitis-viral, Thrush, URI, Other Departure Disposition: 01 HOME / SELF CARE / HOMELESS Impression: Primary Impression: Irritation of pharynx Additional Impression: Pharyngitis Condition: Stable Discharge Instructions: Pharyngitis, [id number], Sore Throat Additional Instructions: You are being discharged today after evaluation for a sore throat. Please read these instructions carefully and follow them to help you recover safely. Medications: You have been prescribed [place] (hydrocodone/acetaminophen) for pain. Take one or two tablets every four to six hours as needed for pain, but do not take more than 8 tablets in 24 hours. Only take Farwell if your pain is not controlled with Tylenol (acetaminophen) or ibuprofen. Stop Farwell as soon as your pain is manageable. Do not take extra Tylenol while using Farwell, as this can cause liver damage. Farwell may cause drowsiness, dizziness, constipation, nausea, and other side effects. Do not drive or operate machinery while taking this medication. To help prevent constipation, drink plenty of water, eat high-fiber foods, and stay active. You may need a stool softener or laxative if you become constipated. Farwell can be habit-forming. Take it only as prescribed, and do not share it with anyone else. If you have leftover pills after your pain improves, dispose of them safely at a pharmacy or medication take-back site. Follow-Up: Schedule and attend your follow-up appointments with your primary care provider and the ENT (ear, nose, and throat) clinic as directed. Bring this discharge summary and a list of your current medications to your appointments. Return Precautions: Return to the emergency department immediately if you experience any of the following: Difficulty breathing, swallowing, or opening your mouth Swelling of your face, neck, or tongue Severe or worsening pain not controlled by your medications High fever (over 101F) or chills Confusion, severe drowsiness, or trouble staying awake Persistent vomiting or inability to keep fluids down Signs of an allergic reaction (rash, itching, swelling, trouble breathing) Any other symptoms that concern you or feel like an emergency. General Advice: Most sore throats improve within a week. Antibiotics are usually not needed unless prescribed for a specific infection. Use salt water gargles or throat lozenges for additional comfort if desired. If you have questions about your medications or symptoms, contact your healthcare provider. Your safety is important. Please follow these instructions and return for care if you have any concerns. Referrals: NO PRIMARY CARE PROVIDER (PCP) Prescriptions Hydrocodone Bit/Acetaminophen 5/325 MG ([place] 5/325 MG) 5 Mg/325 Mg Tablet 1-2 TAB PO Q12H for 7 Days, #20 TAB Prov: INGRID LEMONS 05/04/25 Education Educated: Patient Educated regarding: diagnosis, treatment, need for follow up Signature Scribe Signature: A Attestation: Scribed for Ingrid Lemons by MIKE Rivas . 05/04/25 20:53 INGRID LEMONS May 04, 2025 20:53
[2025-05-04] MEDS: ibuprofen tablet 400 MG TABLET PO ONE (21:03)
[2025-05-04 21:17] VITALS: TEMP 98.6
[2025-05-04] MEDS ORDERED: HYDR-3965 PO (21:32)
[2025-05-04 21:41] VITALS: RESP 18
[2025-05-04] MEDS: ketorolac trometh 30MG/ML vial 30 MG/ML VIAL IM ONE (21:41)
[2025-05-04] MEDS: HYDROcodone/acetaminophen 10/325mg tab PO ONE (21:41)
== END 2025-05-04 21:48 | disposition home or self-care (01) ==
LOC: ER 18:37
DX: J02.9 Acute pharyngitis, unspecified (principal); F31.9 Bipolar disorder, unspecified; F41.9 Anxiety disorder, unspecified; F12.90 Cannabis use, unspecified, uncomplicated; Z88.0 Allergy status to penicillin; Z90.49 Acquired absence of other specified parts of digestive tract
CPT/HCPCS: 87081; 87880; 96372; 99283; J1885